=== PATIENT | male | born 2000 | race Caucasian/White ===

== ENCOUNTER 2018-07-24 12:28 | Emergency (ER) | payer OTHER ==
--- NOTE | 2018-07-24 14:13 | UC ---
Bite Injury/Animal HPI - HPI Summary HPI Summary: today noticed a bat, bat droppings in room. he was afraid of rabies exposure. went to health dept., they did not see risk and did not tx. he does not have any open bites or wounds. he would like rabies tx. - History of Current Complaint Chief Complaint: UCBiteInjury Stated Complaint: POTENTIAL BAT EXPOSURE Time Seen by Provider: 07/24/18 13:53 Hx Obtained From: Patient Pain Intensity: 0 Onset/Duration: Sudden Onset Type of Bite: Animal - BAT Has Animal Been Immunized?: Unknown Aggravating Factor(s): Nothing Alleviating Factor(s): Nothing Associated Signs And Symptoms: Positive: Negative Animal Available for Observation: No - Allergies/Home Medications Allergies/Adverse Reactions: Allergies Allergy/AdvReac Type Severity Reaction Status Date / Time acetaminophen Allergy Intermediate Hives Verified 07/24/18 13:08 Home Medications: Home Medications NK [No Home Medications Reported] 07/24/18 [History Confirmed 07/24/18] PMH/Surg Hx/FS Hx/Imm Hx Previously Healthy: Yes - Surgical History Surgical History: None - Social History Alcohol Use: Rare Substance Use Type: None Smoking Status (MU): Never Smoked Tobacco Review of Systems All Other Systems Reviewed And Are Negative: Yes Constitutional: Positive: Negative Skin: Positive: Negative Respiratory: Positive: Negative Cardiovascular: Positive: Negative Gastrointestinal: Positive: Negative Musculoskeletal: Positive: Negative Physical Exam Vital Signs: Initial Vital Signs Temp 99.2 F 07/24/18 13:03 Pulse 92 07/24/18 13:03 Resp 18 07/24/18 13:03 BP 140/86 07/24/18 13:03 Pulse Ox 100 07/24/18 13:03 Bite Injury Course/Dx - Course Course Of Treatment: exposure to bat w/ unknown status of rabies. no bites/ wounds. pt wants tx/immunization. state dept. contacted. - Differential Dx/Diagnosis Differential Diagnosis/HQI/PQRI: Envenomation, Rabies Exposure, Other Provider Diagnoses: bat exposure. Discharge - Sign-Out/Discharge Documenting (check all that apply): Patient Departure All imaging exams completed and their final reports reviewed: No Studies - Discharge Plan Condition: Good Disposition: HOME Patient Education Materials: Rabies Vaccine (By injection), Rabies Immune Globulin (By injection), Rabies (ED) Referrals: No Primary Care Phys,NOPCP [Primary Care Provider] - Additional Instructions: FOLLOW UP WITH YOUR PCP TO DISCUSS THE REST OF THE IMMUNIZATIONS. Use the CDC if you have any morequestions. - Billing Disposition and Condition Condition: GOOD Disposition: Home
[2018-07-24] MEDS ORDERED: Rabies Immune Globulin 10 ML* 150 UNIT/ML VIAL IM ONE (14:45)
[2018-07-24] MEDS ORDERED: Rabies VIRUS VACCINE (Imovax)* 2.5 UNIT/ML 1 ML IM ONE (14:45)
[2018-07-24 15:41] VITALS: BP 122/80
== END 2018-07-24 15:30 | disposition home or self-care (01) ==
LOC: UCEAST 12:28
DX: Z20.3 Contact with and (suspected) exposure to rabies (principal); Z88.6 Allergy status to analgesic agent
CPT/HCPCS: 90375; 90471; 96372; 99201; G0463

== ENCOUNTER 2018-07-27 07:10 | Emergency (ER) | payer OTHER ==
[2018-07-27 07:22] VITALS: BP 141/69
[2018-07-27] MEDS ORDERED: Rabies VIRUS VACCINE (Imovax)* 2.5 UNIT/ML 1 ML IM ONE (07:33)
--- NOTE | 2018-07-27 07:40 | UC ---
Bite Injury/Animal HPI - HPI Summary HPI Summary: 18 yo male who comes for the second dose of imovax after finding bat droppings in the corridor of his house. He states he recently found droppings in his bedroom. He states he has been having chest pain, palpitations, feeling jittery and stressed due to spending "8 hrs with GLORIA on the phone and with insurance companies for coverage of rabies related costs". He states he has history of minor anxiety but this has made it much worse. Denies radiation of chest pain and states it appears during rest and is relieved with exercise or activity. Feels 'queasy'. Denies vomiting - History of Current Complaint Chief Complaint: UCBiteInjury Stated Complaint: POST EXPOSURE RABIES Time Seen by Provider: 07/27/18 07:28 Hx Obtained From: Patient Severity Initially: Mild Pain Intensity: 1 Onset/Duration: Sudden Onset, Lasting Days Type of Bite: Animal Has Animal Been Immunized?: No Associated Signs And Symptoms: Positive: Negative Animal Available for Observation: No Animal Control Notified: Yes - Allergies/Home Medications Allergies/Adverse Reactions: Allergies Allergy/AdvReac Type Severity Reaction Status Date / Time acetaminophen Allergy Intermediate Hives Verified 07/27/18 07:23 PMH/Surg Hx/FS Hx/Imm Hx Psychological History: Anxiety - Surgical History Surgical History: None - Family History Known Family History: Positive: Hypertension - Social History Alcohol Use: Rare Substance Use Type: None Smoking Status (MU): Never Smoked Tobacco Review of Systems All Other Systems Reviewed And Are Negative: Yes Constitutional: Positive: Fever Eyes: Positive: Negative Cardiovascular: Positive: Palpitations, Chest Pain Psychological: Positive: Anxious Physical Exam Triage Information Reviewed: Yes Appearance: Well-Appearing, No Pain Distress, Well-Nourished Vital Signs: Initial Vital Signs Temp 98.2 F 07/27/18 07:18 Pulse 73 07/27/18 07:18 Resp 18 07/27/18 07:18 BP 141/69 07/27/18 07:18 Pulse Ox 99 07/27/18 07:18 Vital Signs Reviewed: Yes Eyes: Positive: Conjunctiva Clear ENT: Positive: Normal ENT inspection, Hearing grossly normal, Pharynx normal Neck: Positive: Supple, Nontender, No Lymphadenopathy Respiratory: Positive: Chest non-tender, Lungs clear, Normal breath sounds, No respiratory distress Cardiovascular: Positive: RRR, No Murmur, Pulses Normal, Brisk Capillary Refill Abdomen Description: Positive: Nontender, No Organomegaly, Soft Bowel Sounds: Positive: Present Musculoskeletal: Positive: Strength Intact, ROM Intact, No Edema Neurological: Positive: Alert, Muscle Tone Normal Skin Exam: Normal Bite Injury Course/Dx - Course Course Of Treatment: EKG was NSR, patient's symptoms compatible with anxiety, d/ w patient possible measures to treat it. Second dose of rabies vaccine today. Elevation of BP , f/u with PCP for monitoring - Differential Dx/Diagnosis Provider Diagnoses: elevated BP without diagnosis of HTN. Rabies exposure/ prophylaxis Discharge - Sign-Out/Discharge Documenting (check all that apply): Patient Departure All imaging exams completed and their final reports reviewed: No Studies - Discharge Plan Condition: Stable Disposition: HOME Patient Education Materials: Rabies Vaccine (By injection), Anxiety (ED) [facility]errals: [facility] [place] [Outside] No Primary Care Phys,NOPCP [Primary Care Provider] - - Billing Disposition and Condition Condition: STABLE Disposition: Home
== END 2018-07-27 08:47 | disposition home or self-care (01) ==
LOC: UCEAST 07:10
DX: Z20.3 Contact with and (suspected) exposure to rabies (principal); R03.0 Elevated blood-pressure reading, without diagnosis of hypertension; Z88.6 Allergy status to analgesic agent
CPT/HCPCS: 90471; 93005; 96372; 99211; G0463

== ENCOUNTER 2018-07-31 07:10 | Emergency (ER) | payer OTHER ==
[2018-07-31] MEDS ORDERED: Tetanus-Diptheria Toxoids* 0.5 ML SYRINGE IM ONE (07:20)
[2018-07-31 07:22] VITALS: BP 126/83
--- NOTE | 2018-07-31 07:22 | UC ---
Bite Injury/Animal HPI - HPI Summary HPI Summary: 18-year-old male comes in to clinic today for his D7 rabies vaccine. Patient had a bat in the house. He is feeling well no known bite fuller. He is already received the IgM. - History of Current Complaint Stated Complaint: POST RABIES EXPOSURE Time Seen by Provider: 07/31/18 07:16 - Allergies/Home Medications Allergies/Adverse Reactions: Allergies Allergy/AdvReac Type Severity Reaction Status Date / Time acetaminophen Allergy Intermediate Hives Verified 07/31/18 07:18 PMH/Surg Hx/FS Hx/Imm Hx Previously Healthy: Yes - Surgical History Surgical History: None - Family History Known Family History: Positive: Hypertension, Diabetes - Social History Alcohol Use: Rare Substance Use Type: None Smoking Status (MU): Never Smoked Tobacco Review of Systems All Other Systems Reviewed And Are Negative: Yes Constitutional: Positive: Negative Skin: Positive: Negative Eyes: Positive: Negative ENT: Positive: Negative Respiratory: Positive: Negative Cardiovascular: Positive: Negative Gastrointestinal: Positive: Negative Motor: Positive: Negative Neurovascular: Positive: Negative Musculoskeletal: Positive: Negative Neurological: Positive: Negative Psychological: Positive: Negative Is Patient Immunocompromised?: No Physical Exam Triage Information Reviewed: Yes Appearance: Well-Appearing, No Pain Distress, Well-Nourished Vital Signs Reviewed: Yes Eye Exam: Normal Eyes: Positive: Conjunctiva Clear Neck exam: Normal Neck: Positive: Supple Respiratory: Positive: No respiratory distress Musculoskeletal Exam: Normal Musculoskeletal: Positive: Strength Intact, ROM Intact Neurological Exam: Normal Neurological: Positive: Alert, Muscle Tone Normal Psychological Exam: Normal Psychological: Positive: Age Appropriate Behavior Skin Exam: Normal Bite Injury Course/Dx - Course Course Of Treatment: Day 7 Rabies vaccine given in clinic - Differential Dx/Diagnosis Provider Diagnoses: Day 7 Rabies vaccine Discharge - Sign-Out/Discharge Documenting (check all that apply): Patient Departure All imaging exams completed and their final reports reviewed: No Studies - Discharge Plan Condition: Stable Disposition: HOME Patient Education Materials: Rabies Vaccine (ED) Referrals: [facility] [place] [facility] [Outside] [facility] [Outside] [facility] [Provider Group] Additional Instructions: FOLLOW UP WITH YOUR DOCTOR AND [facility] DEPARTMENT. GET RECHECKED FOR ANY WORSENING OF YOUR CONDITION OR QUESTIONS OR CONCERNS. - Billing Disposition and Condition Condition: STABLE Disposition: Home
[2018-07-31] MEDS: Rabies VIRUS VACCINE (Imovax)* 2.5 UNIT/ML 1 ML IM ONE (07:31)
== END 2018-07-31 07:50 | disposition home or self-care (01) ==
LOC: UCEAST 07:10
DX: Z20.3 Contact with and (suspected) exposure to rabies (principal); Z29.14 Encounter for prophylactic rabies immune globulin
CPT/HCPCS: 90471; 99211; G0463

== ENCOUNTER 2018-08-08 15:38 | Emergency (ER) | payer OTHER ==
[2018-08-08 15:51] VITALS: BP 139/75
[2018-08-08] MEDS ORDERED: Rabies VIRUS VACCINE (Imovax)* 2.5 UNIT/ML 1 ML IM ONE (16:29)
--- NOTE | 2018-08-08 16:30 | UC ---
General HPI - HPI Summary HPI Summary: 18-year-old male here for his day 14 rabies vaccination. There was about in the house. He feels well. He started he received the IGM. - History of Current Complaint Chief Complaint: UCGeneralIllness Stated Complaint: RABIES VACCINE Time Seen by Provider: 08/08/18 16:22 Pain Intensity: 0 - Allergy/Home Medications Allergies/Adverse Reactions: Allergies Allergy/AdvReac Type Severity Reaction Status Date / Time acetaminophen Allergy Intermediate Hives Verified 08/08/18 15:51 PMH/Surg Hx/FS Hx/Imm Hx Previously Healthy: Yes - Surgical History Surgical History: None - Family History Known Family History: Positive: Hypertension, Diabetes - Social History Alcohol Use: Rare Substance Use Type: None Smoking Status (MU): Never Smoked Tobacco Review of Systems All Other Systems Reviewed And Are Negative: Yes Constitutional: Positive: Negative Skin: Positive: Negative Eyes: Positive: Negative ENT: Positive: Negative Respiratory: Positive: Negative Cardiovascular: Positive: Negative Gastrointestinal: Positive: Negative Motor: Positive: Negative Neurovascular: Positive: Negative Musculoskeletal: Positive: Negative Neurological: Positive: Negative Psychological: Positive: Negative Is Patient Immunocompromised?: No Physical Exam Triage Information Reviewed: Yes Appearance: Well-Appearing, No Pain Distress, Well-Nourished Vital Signs: Initial Vital Signs Temp 98.6 F 08/08/18 15:47 Pulse 76 08/08/18 15:47 Resp 18 08/08/18 15:47 BP 139/75 08/08/18 15:47 Pulse Ox 100 08/08/18 15:47 Eye Exam: Normal Eyes: Positive: Conjunctiva Clear Neck exam: Normal Neck: Positive: Supple Respiratory: Positive: No respiratory distress Musculoskeletal Exam: Normal Musculoskeletal: Positive: Strength Intact, ROM Intact Neurological Exam: Normal Neurological: Positive: Alert, Muscle Tone Normal Psychological Exam: Normal Psychological: Positive: Age Appropriate Behavior Course/Dx - Differential Dx - Multi-Symptom Provider Diagnoses: DAY 14 RABIES VACCINE Discharge - Sign-Out/Discharge Documenting (check all that apply): Patient Departure All imaging exams completed and their final reports reviewed: No Studies - Discharge Plan Condition: Stable Disposition: HOME Patient Education Materials: Rabies Vaccine (ED) Referrals: [facility] [place] [facility] [Outside] [facility] [Outside] Additional Instructions: FOLLOW UP WITH YOUR DOCTOR AND [facility] DEPARTMENT NEEDED. GET RECHECKED FOR ANY WORSENING OF YOUR CONDITION OR QUESTIONS OR CONCERNS. - Billing Disposition and Condition Condition: STABLE Disposition: Home
== END 2018-08-08 16:55 | disposition home or self-care (01) ==
LOC: UCEAST 15:38
DX: Z23 Encounter for immunization (principal); Z88.5 Allergy status to narcotic agent
CPT/HCPCS: 90471; 99211; G0463